=== PATIENT | female | born 1970 | race Caucasian/White ===

== ENCOUNTER 2022-03-30 08:36 | Outpatient (CLI) | payer BC, MEDICAID, SELFPAY ==
--- NOTE | 2022-03-30 11:00 | NEURO_ITS ---
Impression: # Complains of pain in right foot. # Normal nerve conduction study including motor and sensory nerves. # Normal needle/EMG exam. # Clinical correlation recommended. Nerve Conduction Studies Anti Sensory Summary Table Stim Site NR Peak (ms) P-T Amp (?V) Site1 Site2 Delta-P (ms) Dist (cm) Larry (m/s) Right Sup Fibular Anti Sensory (Ant Lat Mall) 14 cm 3.1 19.6 14 cm Ant Lat Mall 3.1 16.0 52 Right Sural Anti Sensory (Lat Mall) Calf 2.8 22.7 Calf Lat Mall 2.8 16.0 57 Motor Summary Table Stim Site NR Onset (ms) O-P Amp (mV) Site1 Site2 Delta-0 (ms) Dist (cm) Larry (m/s) Right Peroneal Motor (Vastus Med) Ankle 4.1 2.5 Popit Ankle 8.2 38.0 46 Popit 12.3 1.8 Right Tibial Motor (Abd Herbert Brev) Ankle 4.2 3.9 Knee Ankle 8.3 39.0 47 Knee 12.5 3.3 F Wave Studies NR F-Lat (ms) L-R F-Lat (ms) Right Peroneal (Mrkrs) (EDB) 49.18 Right Tibial (Mrkrs) (Abd Hallucis) 49.89 EMG Side Muscle Nerve Root Ins Act Fibs Amp Dur Recrt Comment Right AntTibialis Dp Br Fibular L4-5 Nml Nml Nml Nml Nml Right Gastroc Tibial S1-2 Nml Nml Nml Nml Nml Right Fibularis Long Sup Br Fibular L5-S1 Nml Nml Nml Nml Nml Right Flex Dig Long Tibial L5-S2 Nml Nml Nml Nml Nml Right Ext Dig Brev Dp Br Fibular L5, S1 Nml Nml Nml Nml Nml MTDD
== END 2022-03-30 08:37 | disposition home or self-care (01) ==
LOC: ANHNEURO 08:37
PROVIDERS: PCP Family Medicine; Visit Provider Nurse Practitioner Family
DX: M79.671 Pain in right foot (principal)
CPT/HCPCS: 95886; 95908